=== PATIENT | female | born 1950 | race Two or more races ===

== ENCOUNTER 2023-01-01 07:09 | Emergency (ER) | payer OTHER ==
[~2023-01-01] VITALS: Ht 165.1 cm; Wt 100.0 kg
[2023-01-01 08:04] VITALS: PULSE 61; RESP 16; O2SAT 100
[2023-01-01 08:08] LABS: Alanine Aminotransferase 20 U/L (7-40); Alkaline Phosphatase 107 U/L (46-116); Anion Gap 11 (5-15); Aspartate Aminotransferase 14 U/L (13-40); Blood Urea Nitrogen 57 mg/dL (9-23); Calcium 8.8 mg/dL (8.5-10.1); Carbon Dioxide 29 mmol/L (20-30); Chloride 96 mmol/L (98-107); Glucose 86 mg/dL (74-106); Potassium 4.6 mmol/L (3.5-5.1); Sodium 136 mmol/L (136-145)
[2023-01-01 08:09] LABS: Bilirubin, Total 0.4 mg/dL (0.2-1.0); Total Protein 8.4 g/dL (5.7-8.2)
[2023-01-01 08:11] LABS: Basophils # (auto) 0 10 ^3/uL (0-0.2); Basophils % (auto) 0.5 % (0.0-2.0); Eosinophils # (auto) 0.2 10 ^3/uL (0-0.8); Lymphocytes # (auto) 0.9 10 ^3/uL (0.4-5.4); Monocytes # (auto) 0.8 10 ^3/uL (0-1.3); Nucleated Red Blood Cells % 0.1 %
[2023-01-01 08:12] LABS: Eosinophils % (auto) 2.3 % (0.0-7.0); Hematocrit 28.3 % (36.0-46.0); Hemoglobin 9.3 g/dL (12.2-16.2); Lymphocytes % (auto) 12.3 % (10.0-50.0); Mean Corpuscular Hemoglobin 34.5 pg (28.0-32.0); Mean Corpuscular Hgb Conc. 32.9 g/dL (32.0-36.0); Mean Corpuscular Volume 104.8 fL (80.0-100.0); Neutrophils # (auto) 5.3 10 ^3/uL (1.6-8.6); Neutrophils % (auto) 73.9 % (37.0-80.0); White Blood Cell 7.2 10^3/uL (4.4-10.8)
[2023-01-01 08:17] LABS: INR 1.08 (0.9-1.15); Prothrombin Time 11.3 sec (9.3-11.8)
[2023-01-01 15:40] VITALS: BP 127/62; PULSE 62; RESP 16; TEMP 98; O2SAT 93
== END 2023-01-01 16:27 | disposition home or self-care (01) ==
LOC: EDBD 07:09 → ER 07:09
DX: T82.838A Hemorrhage due to vascular prosthetic devices, implants and grafts, initial encounter (principal); E11.22 Type 2 diabetes mellitus with diabetic chronic kidney disease; N18.6 End stage renal disease; R09.02 Hypoxemia
CPT/HCPCS: 36415; 80053; 85025; 85610